=== PATIENT | female | born 1970 | race Two or more races ===

== ENCOUNTER 2016-09-06 11:34 | Day surgery (SDC) | payer OTHER ==
[~2016-09-06] VITALS: Ht 162.6 cm; Wt 64.4 kg
[2016-09-06] MEDS ORDERED: levothyroxine (12:57)
[2016-09-06] MEDS ORDERED: paxil (12:57)
[2016-09-06 12:58] VITALS: Ht 162.6 cm; Wt 64.4 kg
[2016-09-06 13:22] VITALS: BP 99/54; PULSE 67; RESP 19
[2016-09-06 14:45] VITALS: BP 95/59; PULSE 68; RESP 16
[2016-09-06] MEDS ORDERED: MIDAZOLAM 1 MG/ML 2 ML INJ ONE ×4 (15:06→17:07)
[2016-09-06] MEDS ORDERED: FENTAnyl 50 MCG/ML VIAL ONE (15:06)
--- NOTE | 2016-09-06 15:19 | GILP ---
DATE OF PROCEDURE: NAME OF PROCEDURE: Colonoscopy. SURGEON: Kayode Kelley MD PREOPERATIVE DIAGNOSES: Rectal bleeding. POSTOPERATIVE DIAGNOSES: 1. Colonoscopy all the way to the cecum. 2. Internal hemorrhoids. 3. No colon neoplasm was identified. INDICATION FOR THE PROCEDURE: Ms. Merced Chester is a 46-year-old female patient who had rectal blee ding. She has a family history of colon cancer. The patient was scheduled for colonoscopy for furt her evaluation. The procedure and possible complications were well explained to the patient. The patient understood and consented to the procedure. DESCRIPTION OF PROCEDURE: Under the influence of fentanyl and Versed the colonoscope was carefully introduced in the rectum and under direct vision it was advanced all the way to the cecum. FINDINGS: The patient had internal hemorrhoids. No colon neoplasm was identified. The patient tolerated the procedure very well and there was no complication from the procedure. At the end of the procedure she was awake with stable vital signs and she was discharged home to the ca re of her family. IMPRESSION: 1. Colonoscopy all the way to the cecum. 2. Internal hemorrhoids. 3. No colon neoplasm was identified. PLAN: Next screening colonoscopy in 10 years. Dictated By: KAYODE FERNANDO/DEJON Conf#: [id number] DID#: [id number]
== END 2016-09-06 16:31 | disposition home or self-care (01) ==
LOC: GIL 11:34
PROVIDERS: ATTEND Internal Medicine Gastroenterology
DX: K64.8 Other hemorrhoids (principal)
CPT/HCPCS: 45378; 84703; J2250; J3010; Z7610